=== PATIENT | female | born 1970 | race Caucasian/White ===

== ENCOUNTER 2017-04-03 10:14 | Emergency (ER) | payer OTHER ==
[~2017-04-03] VITALS: Ht 162.6 cm; Wt 77.1 kg
[2017-04-03 10:33] VITALS: BP 130/80; PULSE 98; RESP 16; TEMP 97.5; O2SAT 99
[2017-04-03 10:35] LABS: BILIRUBIN, URINE NEG (NEG); BLOOD, URINE LARGE (NEG); GLUCOSE,URINE NEG (NEG); KETONE, URINE NEG (NEG); NITRITE,URINE NEG (NEG); URINE LEUKOCYTE ESTERASE LARGE (NEG)
[2017-04-03 10:37] LABS: URINE COLOR PINK (YELLW/STRAW)
[2017-04-03 10:39] LABS: BACTERIA, URINE FEW /hpf; RBC, URINE 15-19 /hpf (0-3); SQUAMOUS EPITHELIAL CELL URINE 0-5 /hpf (0-5); WBC, URINE 100-200 /hpf (0-5)
[2017-04-03] MEDS ORDERED: LEVO.125 PO (10:39)
[2017-04-03] MEDS ORDERED: PHEN0.4T PO (10:49)
[2017-04-03] MEDS ORDERED: DIFL150T PO (10:49)
[2017-04-03] MEDS ORDERED: MACR100C2 PO (10:49)
--- NOTE | 2017-04-03 10:49 | PD ---
HPI Chief Complaint: Complaint Time Seen by Provider: 10:46 Travel History International Travel<30 days: No Contact w/Intl Traveler<30days: No Traveled to known affect area: No History of Present Illness HPI 46-year-old female patient with previous history of UTIs, had a carpal tunnel surgery several weeks ago, here today because over last 2 days she's been having urinary urgency, some blood in her urine this morning, having pelvic discomfort. She states it feels like her previous UTIs but feels worse. She also complains of lower back discomfort. She was nauseous but denies any vomiting, fevers, or any other symptoms. Modifying Factors: None Associated Signs & Symptoms: Urinary symptoms, blood in the urine, lower back discomfort Risk Factors: None PFSH Past Medical History Diminished Hearing: No Thyroid Disease: Yes Tetanus Vaccination: Unknown Influenza Vaccination: Yes ?: Not Past Surgical History Cholecystectomy: Yes Social History Alcohol Use: Yes (soc) Tobacco Use: No Substance Use: No Allergies-Medications (Allergen,Severity, Reaction): Coded Allergies: NSAIDS (Non-Steroidal Anti-Inflamma (Verified Allergy, Severe, hives, ) Reported Meds & Prescriptions Reported Meds & Active Scripts Active Reported Synthroid (Levothyroxine Sodium) 125 Mcg Tab 125 Mcg PO DAILY Review of Systems Except as stated in HPI: all other systems reviewed are Neg Physical Exam Narrative GENERAL: Well-developed middle age female patient currently in mild distress at awake and oriented 3. SKIN: Focused skin assessment warm/dry. HEAD: Atraumatic. Normocephalic. EYES: Pupils equal and round. No scleral icterus. No injection or drainage. ENT: No nasal bleeding or discharge. Mucous membranes pink and moist. NECK: Trachea midline. No JVD. CARDIOVASCULAR: Regular rate and rhythm. No murmur appreciated. RESPIRATORY: No accessory muscle use. Clear to auscultation. Breath sounds equal bilaterally. GASTROINTESTINAL: Abdomen soft, suprapubic tenderness without guarding or rebound, nondistended. Hepatic and splenic margins not palpable. BACK: No CVA tenderness. No rash. No point tenderness on palpation of the spine. MUSCULOSKELETAL: No obvious deformities. No clubbing. No cyanosis. No edema. NEUROLOGICAL: Awake and alert. No obvious cranial nerve deficits. Motor grossly within normal limits. Normal speech. PSYCHIATRIC: Appropriate mood and affect; insight and judgment normal. Data Data Last Documented VS Vital Signs Date Time Temp Pulse Resp B/P (MAP) Pulse Ox O2 Delivery O2 Flow Rate FiO2 04/03/17 10:36 16 04/03/17 10:33 97.5 98 130/80 (97) 99 Orders Orders Urinalysis - C+S If Indicated (04/03/17 10:18) Ed Urine Pregnancytest Poc (04/03/17 10:18) Urine Culture (04/03/17 10:25) Labs Laboratory Tests Test 04/03/17 10:25 Urine Color PINK Urine Turbidity HAZY Urine pH 7.0 Urine Specific Fred 1.003 Urine Protein 30 mg/dL Urine Glucose (UA) NEG mg/dL Urine Ketones NEG mg/dL Urine Occult Blood LARGE Urine Nitrite NEG Urine Bilirubin NEG Urine Leukocyte Esterase LARGE Urine RBC 15-19 /hpf Urine WBC 100-200 /hpf Urine Squamous Epithelial Cells 0-5 /hpf Urine Bacteria FEW /hpf Microscopic Urinalysis Comment CULTURE INDICATED MDM Medical Decision Making Medical Screen Exam Complete: Yes Emergency Medical Condition: Yes Medical Record Reviewed: Yes Differential Diagnosis UTI versus pyelonephritis versus renal colic Narrative Course She is having significant UTI symptoms and urine is indicative of UTI. Vital signs are otherwise stable. I suspect the UTI and this case. No CVA tenderness. My plan would be to treat her and have her follow-up with primary care doctor. Return for any worsening in symptoms as needed. The plan has been discussed with her and she states understanding. Diagnosis Primary Impression: UTI (urinary tract infection) Med/Other Pt SpecificInfo: Prescription(s) given Scripts Fluconazole (Diflucan) 150 Mg Tab 150 MG PO ONCE for Infection, #1 TAB 0 Refills Prov: Verena Garcia MD 04/03/17 Phenazopyridine (Pyridium) 100 Mg Tab 100 MG PO Q8H Y for DYSURIA, #10 TAB 0 Refills Prov: Verena Garcia MD 04/03/17 Nitrofurantoin Monohydrate Macrocrystals (Macrobid) 100 Mg Cap 100 MG PO BID for Infection for 7 Days, #14 CAP 0 Refills Prov: Verena Garcia MD 04/03/17 Disposition: 01 DISCHARGE HOME Condition: Stable Verena Garcia MD Apr 03, 2017 10:49
== END 2017-04-03 11:06 | disposition home or self-care (01) ==
LOC: PHED 10:14
DX: N39.0 Urinary tract infection, site not specified (principal); B96.89 Other specified bacterial agents as the cause of diseases classified elsewhere; R11.0 Nausea; E07.9 Disorder of thyroid, unspecified; Z87.440 Personal history of urinary (tract) infections; Z88.6 Allergy status to analgesic agent; Z79.899 Other long term (current) drug therapy
CPT/HCPCS: 81001; 84703; 87077; 87086; 87186; 99284